=== PATIENT | female | born 1995 | race Hispanic/Latino ===

== ENCOUNTER 2019-02-12 11:42 | Emergency (ER) | payer SELFPAY ==
[~2019-02-12] VITALS: Ht 160 cm; Wt 123.5 kg
--- NOTE | 2019-02-12 13:28 | REP ---
CHEST, TWO VIEWS: There is no evidence of acute infiltrate. No pleural effusion is seen. The heart is normal in size. The mediastinal silhouette is unremarkable. The visualized osseous structures are intact. IMPRESSION: No acute pulmonary disease. Electronically Signed by Delfino Yee MD 02/12/2019 04:57 P
--- NOTE | 2019-02-12 13:30 | REP ---
KUB ABDOMEN AND PELVIS: Single view of the abdomen and pelvis is performed. Bowel gas pattern is normal. There is no small bowel dilatation. Two tiny calcifications a few millimeters in diameter are seen in the left pelvis. These may represent phleboliths. The visualized osseous structures are unremarkable. Electronically Signed by Delfino Yee MD 02/12/2019 04:57 P
[2019-02-12 14:00] LABS: BASO % 0.4 % (0.0-1.0); EOS # 0.1 10^3/uL (0.0-0.5); EOS % 2.3 % (0.0-3.0); HEMATOCRIT 43.8 % (36.0-47.0); HEMOGLOBIN 14.2 g/dl (12.0-15.5); LYMPH # 2.4 10^3/uL (1.5-5.0); MEAN CORPUSCULAR HEMOGLOBIN 29.2 pg (27.0-33.0); MEAN CORPUSCULAR HGB CONC 32.4 g/dl (32.0-36.5); MEAN CORPUSCULAR VOLUME 90.1 fl (80.0-96.0); MONO # 0.6 10^3/uL (0.0-0.8); MONO % 10.7 % (0.0-5.0); NEUTROPHILS # 2.1 10^3/uL (1.5-8.5); NEUTROPHILS % 40.4 % (36.0-66.0); PLATELET COUNT, AUTOMATED 254 10^3/uL (150-450); RED BLOOD COUNT 4.86 10^6/uL (4.00-5.40); WHITE BLOOD COUNT 5.2 10^3/uL (4.0-10.0)
[2019-02-12 14:28] LABS: BLOOD UREA NITROGEN 9 MG/DL (7-18); CALCIUM LEVEL 9.2 MG/DL (8.5-10.1); CARBON DIOXIDE LEVEL 27 MEQ/L (21-32); CHLORIDE LEVEL 107 MEQ/L (98-107); GLOMERULAR FILTRATION RATE > 60.0 (>60); GLUCOSE, FASTING 93 MG/DL (70-100); POTASSIUM SERUM 3.9 MEQ/L (3.5-5.1); SODIUM LEVEL 141 MEQ/L (136-145)
[2019-02-12 14:30] LABS: ALT/SGPT 37 U/L (12-78); BILIRUBIN,DIRECT 0.1 MG/DL (0.0-0.2); BILIRUBIN,TOTAL 0.4 MG/DL (0.2-1.0); CK-MB VALUE MASS < 1.0 NG/ML (<3.6); CPK CREATINE PHOSPHOKINASE 117 U/L (26-192); LIPASE 111 U/L (73-393); MB/CK RELATIVE INDEX 0.85 (< OR =4); TOTAL PROTEIN 7.5 GM/DL (6.4-8.2); TROPONIN I < 0.02 NG/ML (< 0.10)
[2019-02-12] MEDS ORDERED: ISOVUE-370 76% 100ML VIAL (Q9967) As Ordered ONE (14:32)
--- NOTE | 2019-02-12 15:00 | REP ---
Clinical: Hemoptysis and chest pain . Technique: Axial contrast enhanced images from the thoracic inlet to the upper abdomen using 75 ml Isovue 370 intravenous contrast material with multiplanar re-formations. Findings: Satisfactory enhancement of the pulmonary vasculature is achieved and no filling defects are identified to suggest pulmonary embolus. Further evaluation of the mediastinum demonstrates normal thoracic aorta, heart and pericardium. The bilateral lung mortensen are well aerated and clear without consolidation pleural effusion or pneumothorax. Tracheobronchial tree is patent. No nodule or mass lesion is identified. No adenopathy noted. Surrounding musculoskeletal structures intact Impression: No evidence for pulmonary embolus. No acute mediastinal or pleural parenchymal process. Electronically Signed by Howard Cesar MD 02/12/2019 02:51 P
[2019-02-12] MEDS ORDERED: PROT1TAB2 PO (15:09)
[2019-02-12] MEDS ORDERED: PANTOPRAZOLE 40MG TAB (PROTONIX) PO ONE (15:15)
[2019-02-12 15:59] VITALS: BP 130/80
--- NOTE | 2019-02-12 17:18 | ECGEPIP ---
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
== END 2019-02-12 16:00 | disposition home or self-care (01) ==
LOC: M ED 11:42
DX: K92.0 Hematemesis (principal); I87.8 Other specified disorders of veins; I44.0 Atrioventricular block, first degree; F17.200 Nicotine dependence, unspecified, uncomplicated; F12.10 Cannabis abuse, uncomplicated; F10.10 Alcohol abuse, uncomplicated; E66.9 Obesity, unspecified; Z88.0 Allergy status to penicillin
CPT/HCPCS: 71046; 71275; 74018; 80048; 80076; 82550; 82553; 83690; 84484; 84702; 85025; 93005; 99284; Q9967

== ENCOUNTER 2019-03-15 19:21 | Emergency (ER) | payer SELFPAY ==
[~2019-03-15] VITALS: Ht 160 cm; Wt 127.3 kg
[2019-03-15 19:21] VITALS: BP 127/75
[~2019-03-15 19:21] MED LIST: PROT1TAB2 PO
[2019-03-15 20:13] LABS: INFLUENZA A AMPLIFICATION NEGATIVE (NEGATIVE); INFLUENZA B AMPLIFICATION NEGATIVE (NEGATIVE)
== END 2019-03-15 22:15 | disposition left against medical advice (07) ==
LOC: M ED 19:21
DX: R07.0 Pain in throat (principal); Z53.21 Procedure and treatment not carried out due to patient leaving prior to being seen by health care provider